=== PATIENT | male | born 1940 | race Caucasian/White ===

== ENCOUNTER 2021-01-14 10:58 | Observation (INO) ==
[2021-01-14 13:47] LABS: BUN/Creatinine Ratio 20 (6-26); Blood Urea Nitrogen 16 mg/dL (8-23); Calcium 9.6 mg/dL (8.6-10.3); Carbon Dioxide 28 mEq/L (23-29); Chloride 104 mEq/L (98-107); Glucose 172 mg/dL (70-105); Osmolality,Calculated 293 (280-300); Potassium 4.3 mEq/L (3.5-5.1); Sodium 139 mEq/L (136-145); eGFR For African Americans > 60 (> 60); eGFR For Non-African Americans > 60 (> 60)
[2021-01-14] MEDS ORDERED: Naloxone 0.4 MG/ML INJ IVP PRN (16:00)
[2021-01-14] MEDS ORDERED: Acetaminophen 325 MG TABLET PO PRN (16:13)
[2021-01-14] MEDS ORDERED: Ondansetron 4 MG/2 ML VIAL IVP PRN (16:13)
[2021-01-14] MEDS ORDERED: D5% in Water 1,000 ML IVC PRN (16:45)
[2021-01-14] MEDS ORDERED: *HR* Dextrose 50 % in Water (Vial) 50 ML VIAL IVP PRN (16:45)
[2021-01-14] MEDS ORDERED: Dextrose Gel 15 GM/37.5 ML TUBE PO PRN ×2 (16:45)
[2021-01-14] MEDS ORDERED: Isovue-370 500 ML BOTTLE IVP ONE ×2 (17:01→18:28)
[2021-01-14] MEDS: Insulin LISPRO 300 UNITS/3 ML VIAL SUBQ SCH (17:29)
[2021-01-14] MEDS: cefTRIAXone 1,000 MG in Water for inj. (sterile) 10 ML IVP SCH (17:31)
[2021-01-14 17:32] LABS: INR 1.1; Prothrombin Time 12.8 Seconds (9.4-12.1)
[2021-01-15] MEDS: Insulin LISPRO 300 UNITS/3 ML VIAL SUBQ SCH ×5 (00:45→23:56)
[2021-01-15 02:48] LABS: Basophils % 0.2 %; Eosinophils % 0.3 %; Hematocrit 34.7 % (37.5-50.1); Hemoglobin 12.1 g/dL (12.9-16.9); Immature Granulocytes % 1.4 % (0-4); Lymphocytes % 11.7 %; Mean Corpuscular HGB Conc 34.9 g/dL (31.6-35.5); Mean Corpuscular Volume 97.5 fL (83.0-100.0); Mean Platelet Volume 10.4 fL (9.4-12.4); Monocytes # 0.9 K/mcL (0.0-1.3); Neutrophils # 6.6 K/mcL (1.6-8.9); Platelet Count 150 K/mcL (140-400); Red Blood Count 3.56 M/mcL (4.19-5.50); Red Cell Distribution Width 14.9 % (11.5-14.5); Segmented Neutrophils % 76.4 %; White Blood Count 8.7 K/mcL (4.3-11.1)
[2021-01-15 03:04] LABS: BUN/Creatinine Ratio 19 (6-26); Blood Urea Nitrogen 14 mg/dL (8-23); Calcium 9.3 mg/dL (8.6-10.3); Carbon Dioxide 29 mEq/L (23-29); Chloride 104 mEq/L (98-107); Glucose 125 mg/dL (70-105); Osmolality,Calculated 292 (280-300); Potassium 3.6 mEq/L (3.5-5.1); Sodium 140 mEq/L (136-145); eGFR For African Americans > 60 (> 60); eGFR For Non-African Americans > 60 (> 60)
[2021-01-15] MEDS ORDERED: Melatonin 3 MG TABLET PO PRN (10:03)
[2021-01-15] MEDS: cefTRIAXone 1,000 MG in Water for inj. (sterile) 10 ML IVP SCH (10:09)
[2021-01-15] MEDS: rOPINIRole 0.25 MG TABLET PO SCH ×3 (10:47→22:12)
[2021-01-15] MEDS: Furosemide 40 MG TABLET PO SCH (10:47)
[2021-01-15] MEDS: Gabapentin 300 MG CAPSULE PO SCH ×3 (10:47→22:12)
[2021-01-15] MEDS: Finasteride 5 MG TABLET PO SCH (10:47)
[2021-01-15] MEDS: Carbidopa/Levodopa 25/100 TABLET PO SCH ×4 (12:56→23:58)
[2021-01-16] MEDS: Insulin LISPRO 300 UNITS/3 ML VIAL SUBQ SCH ×3 (05:52→18:03)
[2021-01-16] MEDS: Furosemide 40 MG TABLET PO SCH (08:56)
[2021-01-16] MEDS: rOPINIRole 0.25 MG TABLET PO SCH ×3 (08:57→21:13)
[2021-01-16] MEDS: Gabapentin 300 MG CAPSULE PO SCH ×3 (08:57→21:13)
[2021-01-16] MEDS: Finasteride 5 MG TABLET PO SCH (08:58)
[2021-01-16] MEDS: Carbidopa/Levodopa 25/100 TABLET PO SCH ×4 (09:00→21:40)
[2021-01-16] MEDS: cefTRIAXone 1,000 MG in Water for inj. (sterile) 10 ML IVP SCH (09:00)
[2021-01-16 09:28] LABS: Basophils % 0.4 %; Eosinophils # 0.1 K/mcL (0.0-0.6); Eosinophils % 1.2 %; Hematocrit 35.4 % (37.5-50.1); Hemoglobin 12.2 g/dL (12.9-16.9); Immature Granulocytes % 1.5 % (0-4); Lymphocytes # 0.9 K/mcL (0.6-4.6); Lymphocytes % 12.2 %; Mean Corpuscular HGB Conc 34.5 g/dL (31.6-35.5); Mean Corpuscular Volume 98.6 fL (83.0-100.0); Mean Platelet Volume 10.5 fL (9.4-12.4); Monocytes # 0.7 K/mcL (0.0-1.3); Monocytes % 9.4 %; Neutrophils # 5.5 K/mcL (1.6-8.9); Platelet Count 154 K/mcL (140-400); Red Blood Count 3.59 M/mcL (4.19-5.50); Red Cell Distribution Width 15.1 % (11.5-14.5); Segmented Neutrophils % 75.3 %; White Blood Count 7.2 K/mcL (4.3-11.1)
[2021-01-16 09:51] LABS: Alanine Aminotransferase 3 Units/L (7-52); Albumin 4.1 g/dL (3.5-5.7); Albumin/Globulin Ratio 1.6 (1.1-2.2); Alkaline Phosphatase 55 Units/L (34-104); Aspartate Amino Transferase 16 Units/L (13-39); BUN/Creatinine Ratio 22 (6-26); Bilirubin,Total 0.5 mg/dL (0.3-1.0); Blood Urea Nitrogen 19 mg/dL (8-23); Calcium 9.4 mg/dL (8.6-10.3); Carbon Dioxide 28 mEq/L (23-29); Chloride 105 mEq/L (98-107); Globulin 2.6 g/dL (2.4-3.5); Glucose 131 mg/dL (70-105); Osmolality,Calculated 298 (280-300); Potassium 3.7 mEq/L (3.5-5.1); Sodium 142 mEq/L (136-145); Total Protein 6.7 g/dL (6.4-8.9); eGFR For African Americans > 60 (> 60); eGFR For Non-African Americans > 60 (> 60)
[2021-01-16] MEDS: Levalbuterol Neb 1.25 MG/3 ML IH SCH (21:47)
[2021-01-17] MEDS: Insulin LISPRO 300 UNITS/3 ML VIAL SUBQ SCH ×4 (00:24→17:55)
[2021-01-17] MEDS: Carbidopa/Levodopa 25/100 TABLET PO SCH ×5 (00:43→20:10)
[2021-01-17] MEDS: Levalbuterol Neb 1.25 MG/3 ML IH SCH ×3 (04:31→15:52)
[2021-01-17] MEDS: rOPINIRole 0.25 MG TABLET PO SCH ×3 (08:32→20:11)
[2021-01-17] MEDS: Gabapentin 300 MG CAPSULE PO SCH ×3 (08:33→20:11)
[2021-01-17] MEDS: Finasteride 5 MG TABLET PO SCH (08:33)
[2021-01-17] MEDS: Furosemide 40 MG TABLET PO SCH (08:34)
[2021-01-17] MEDS ORDERED: Levalbuterol Neb 1.25 MG/3 ML IH PRN (19:51)
[2021-01-18] MEDS: Insulin LISPRO 300 UNITS/3 ML VIAL SUBQ SCH ×4 (00:46→16:31)
[2021-01-18] MEDS: Carbidopa/Levodopa 25/100 TABLET PO SCH ×5 (00:46→20:35)
[2021-01-18] MEDS: Finasteride 5 MG TABLET PO SCH (08:12)
[2021-01-18] MEDS: rOPINIRole 0.25 MG TABLET PO SCH ×3 (08:12→20:33)
[2021-01-18] MEDS: Furosemide 40 MG TABLET PO SCH (08:12)
[2021-01-18] MEDS: Gabapentin 300 MG CAPSULE PO SCH ×3 (08:12→20:33)
[2021-01-19] MEDS: Carbidopa/Levodopa 25/100 TABLET PO SCH ×2 (00:44→07:40)
[2021-01-19] MEDS: Insulin LISPRO 300 UNITS/3 ML VIAL SUBQ SCH ×2 (00:44→04:52)
[2021-01-19 06:33] VITALS: BP 141/87
[2021-01-19] MEDS: Finasteride 5 MG TABLET PO SCH (07:37)
[2021-01-19] MEDS: Furosemide 40 MG TABLET PO SCH (07:38)
[2021-01-19] MEDS: Gabapentin 300 MG CAPSULE PO SCH (07:38)
[2021-01-19] MEDS: rOPINIRole 0.25 MG TABLET PO SCH (07:38)
[2021-01-19 10:32] LABS: Adenovirus Not Detected (Not Detect); Bordetella Pertussis Not Detected (Not Detect); Chlamydophila pneumoniae Not Detected (Not Detect); Coronavirus 229E Not Detected (Not Detect); Coronavirus HKU1 Not Detected (Not Detect); Coronavirus NL63 Not Detected (Not Detect); Coronavirus OC43 Not Detected (Not Detect); Human Metapneumovirus Not Detected (Not Detect); Human Rhinovirus/Enterovirus Not Detected (Not Detect); Influenza A Subtype 2009 H1 Not Detected (Not Detect); Influenza B Not Detected (Not Detect); Mycoplasma pneumoniae Not Detected (Not Detect); Parainfluenza Virus 1 Not Detected (Not Detect); Parainfluenza Virus 2 Not Detected (Not Detect); Parainfluenza Virus 3 Not Detected (Not Detect); Parainfluenza Virus 4 Not Detected (Not Detect); Respiratory Syncytial Virus Not Detected (Not Detect); SARS-CoV-2 Not Detected (Not Detect)
== END 2021-01-19 10:21 ==
LOC: 3ANU 10:58 → EMEROOARM 10:58 → SUATTDRO 15:27 → 3ANU 15:28 → 3BNU 15:30
PROVIDERS: ADMIT Internal Medicine; ATTEND Internal Medicine

== ENCOUNTER 2021-03-16 13:39 | Observation (INO) ==
[2021-03-16 14:50] LABS: Basophils # 0.1 K/mcL (0.0-0.2); Basophils % 0.6 %; Eosinophils # 0.1 K/mcL (0.0-0.6); Eosinophils % 0.6 %; Hematocrit 38.3 % (37.5-50.1); Hemoglobin 13.4 g/dL (12.9-16.9); Immature Granulocytes % 2.1 % (0-4); Lymphocytes # 1.1 K/mcL (0.6-4.6); Lymphocytes % 13.7 %; Mean Corpuscular Hemoglobin 34.2 pg (28.0-33.3); Mean Corpuscular Volume 97.7 fL (83.0-100.0); Mean Platelet Volume 10.9 fL (9.4-12.4); Monocytes # 0.7 K/mcL (0.0-1.3); Monocytes % 8.6 %; Platelet Count 158 K/mcL (140-400); Red Blood Count 3.92 M/mcL (4.19-5.50); Red Cell Distribution Width 15.3 % (11.5-14.5); Segmented Neutrophils % 74.4 %; White Blood Count 8.1 K/mcL (4.3-11.1)
[2021-03-16 15:19] LABS: INR 1.3; Prothrombin Time 15.3 Seconds (9.4-12.1)
[2021-03-16 15:22] LABS: Activated Partial Thrombo Time 31.6 Seconds (26.0-36.0)
[2021-03-16 15:29] LABS: Alanine Aminotransferase < 3 Units/L (7-52); Albumin 4.1 g/dL (3.5-5.7); Albumin/Globulin Ratio 1.4 (1.1-2.2); Alkaline Phosphatase 70 Units/L (34-104); Aspartate Amino Transferase 21 Units/L (13-39); BUN/Creatinine Ratio 16 (6-26); Bilirubin,Indirect 0.3 mg/dL (0.0-1.0); Bilirubin,Total 0.3 mg/dL (0.3-1.0); Blood Urea Nitrogen 14 mg/dL (8-23); Calcium 9.3 mg/dL (8.6-10.3); Carbon Dioxide 28 mEq/L (23-29); Chloride 99 mEq/L (98-107); Globulin 2.9 g/dL (2.4-3.5); Glucose 179 mg/dL (70-105); Osmolality,Calculated 289 (280-300); Potassium 4.4 mEq/L (3.5-5.1); Sodium 137 mEq/L (136-145); Troponin I < 0.03 ng/mL (< 0.04); eGFR For African Americans > 60 (> 60); eGFR For Non-African Americans > 60 (> 60)
[2021-03-16 15:45] LABS: Ethanol < 10 mg/dL (Less than 10)
[2021-03-16 15:46] LABS: Amphetamine Screen,Urine Negative ng/mL (Cutoff=1000); Bacteria,Urine Few per hpf (None-Few); Barbiturate Screen,Urine Negative ng/mL (Cutoff=200); Benzodiazepines Screen,Urine Negative ng/mL (Cutoff=200); Bilirubin,Urine Negative (Negative); Blood,Urine Negative (Negative); Cannabinoid Screen,Urine Negative ng/mL (Cutoff = 50); Clarity,Urine Clear (Clear); Cocaine Screen,Urine Negative ng/mL (Cutoff= 300); Color,Urine Light-Yellow (Yellow); Glucose,Urine (UA) Normal (Normal); Hyaline Casts,Urine Moderate per lpf (None Seen); Ketones,Urine Negative (Negative); Leukocyte Esterase,Urine Moderate (Negative); Mucus,Urine Few per lpf (None-Few); Nitrite,Urine Negative (Negative); Opiate Screen,Urine Negative ng/mL (Cutoff=300); Phencyclidine Screen,Urine Negative ng/mL (Cutoff=25); Protein,Urine Negative (Neg-Trace); Renal Epithelial Cells,Urine Few per hpf (None-Few); Specific Gravity,Urine 1.016 (1.010-1.025); Transitional Epi Cells,Urine Few per hpf (None-Few); Urobilinogen,Urine Normal (Normal); WBC,Urine 30-50 per hpf (0-3)
[2021-03-16] MEDS ORDERED: cefTRIAXone 1,000 MG in Water for inj. (sterile) 10 ML IVP ONE (16:27)
[2021-03-16] MEDS ORDERED: Ondansetron ODT 4 MG TAB.RAPDIS SL PRN (16:49)
[2021-03-16] MEDS ORDERED: Naloxone 0.4 MG/ML INJ IVP PRN (16:49)
[2021-03-16] MEDS ORDERED: Mag Hydrox/Al Hydrox/Simeth 30 ML UDC PO PRN (16:49)
[2021-03-16 17:42] LABS: Triiodothyronine (T3) Free 3.75 pg/mL (2.50-3.90)
[2021-03-16 17:48] LABS: Folate 19.4 ng/mL (3.0-16.0)
[2021-03-16] MEDS ORDERED: *HR* LORazepam 2 MG/ML VIAL IVP PRN (17:50)
[2021-03-16] MEDS ORDERED: *HR* HYDROcodone/Acet 5/325 mg TABLET PO PRN (17:54)
[2021-03-16] MEDS: Haloperidol Lactate 5 MG/ML VIAL IVP PRN (18:11)
[2021-03-16] MEDS: rOPINIRole 0.25 MG TABLET PO SCH (19:49)
[2021-03-16] MEDS: Carbidopa/Levodopa 25/100 TABLET PO SCH (19:49)
[2021-03-16] MEDS: Sennosides/Docusate Sodium TABLET PO SCH (19:51)
[2021-03-16] MEDS: Melatonin 3 MG TABLET PO PRN (19:52)
[2021-03-17] MEDS: (Miconazole Nitrate [Desenex] 43 GM Powder) TP SCH ×2 (00:11→09:31)
[2021-03-17] MEDS: Carbidopa/Levodopa 25/100 TABLET PO SCH ×5 (00:20→20:33)
[2021-03-17 06:54] LABS: Hematocrit 34.6 % (37.5-50.1); Hemoglobin 11.6 g/dL (12.9-16.9); Mean Corpuscular HGB Conc 33.5 g/dL (31.6-35.5); Mean Corpuscular Hemoglobin 33.3 pg (28.0-33.3); Mean Corpuscular Volume 99.4 fL (83.0-100.0); Mean Platelet Volume 10.7 fL (9.4-12.4); Platelet Count 143 K/mcL (140-400); Red Blood Count 3.48 M/mcL (4.19-5.50); Red Cell Distribution Width 14.7 % (11.5-14.5); White Blood Count 5.5 K/mcL (4.3-11.1)
[2021-03-17 07:10] LABS: BUN/Creatinine Ratio 14 (6-26); Blood Urea Nitrogen 11 mg/dL (8-23); Calcium 8.9 mg/dL (8.6-10.3); Carbon Dioxide 31 mEq/L (23-29); Chloride 104 mEq/L (98-107); Glucose 140 mg/dL (70-105); Osmolality,Calculated 292 (280-300); Sodium 140 mEq/L (136-145); eGFR For African Americans > 60 (> 60); eGFR For Non-African Americans > 60 (> 60)
[2021-03-17] MEDS: Cholecalciferol (D-3) 1,000 UNIT (25MCG) TABLET PO SCH (09:29)
[2021-03-17] MEDS: cefTRIAXone 1,000 MG in Water for inj. (sterile) 10 ML IVP SCH (09:30)
[2021-03-17] MEDS: Sennosides/Docusate Sodium TABLET PO SCH ×2 (09:30→20:36)
[2021-03-17] MEDS: Finasteride 5 MG TABLET PO SCH (09:30)
[2021-03-17] MEDS: Furosemide 20 MG TABLET PO SCH (09:30)
[2021-03-17] MEDS: rOPINIRole 0.25 MG TABLET PO SCH ×3 (09:31→20:35)
[2021-03-17] MEDS: polyethylene glycoL 3350 17 GM POWD.PACK PO SCH (09:31)
[2021-03-17] MEDS ORDERED: Albuterol 2.5 MG/3 ML NEBULIZER IH PRN (14:15)
[2021-03-17] MEDS: Acetaminophen 325 MG TABLET PO SCH ×2 (16:10→20:36)
[2021-03-17] MEDS ORDERED: *HR* Heparin 5,000 UNIT/ML VIAL SQ SCH (18:00)
[2021-03-17] MEDS: Apixaban 5 MG TABLET PO SCH (20:35)
[2021-03-17] MEDS: Melatonin 3 MG TABLET PO PRN (20:36)
[2021-03-17] MEDS: Nystatin POWDER 30 GM BOTTLE TP SCH (20:42)
[2021-03-18] MEDS: Carbidopa/Levodopa 25/100 TABLET PO SCH ×6 (00:46→22:50)
[2021-03-18 02:11] LABS: Basophils % 0.3 %; Eosinophils # 0.1 K/mcL (0.0-0.6); Eosinophils % 1.3 %; Hematocrit 36.3 % (37.5-50.1); Hemoglobin 12.3 g/dL (12.9-16.9); Immature Granulocytes % 1.9 % (0-4); Lymphocytes % 15.5 %; Mean Corpuscular HGB Conc 33.9 g/dL (31.6-35.5); Mean Corpuscular Hemoglobin 32.9 pg (28.0-33.3); Mean Corpuscular Volume 97.1 fL (83.0-100.0); Mean Platelet Volume 10.3 fL (9.4-12.4); Monocytes # 0.5 K/mcL (0.0-1.3); Monocytes % 8.5 %; Neutrophils # 4.6 K/mcL (1.6-8.9); Platelet Count 153 K/mcL (140-400); Red Blood Count 3.74 M/mcL (4.19-5.50); Segmented Neutrophils % 72.5 %; White Blood Count 6.3 K/mcL (4.3-11.1)
[2021-03-18] MEDS: Finasteride 5 MG TABLET PO SCH (08:30)
[2021-03-18] MEDS: Furosemide 20 MG TABLET PO SCH (08:30)
[2021-03-18] MEDS: Sennosides/Docusate Sodium TABLET PO SCH ×2 (08:30→19:31)
[2021-03-18] MEDS: Cholecalciferol (D-3) 1,000 UNIT (25MCG) TABLET PO SCH (08:30)
[2021-03-18] MEDS: Apixaban 5 MG TABLET PO SCH ×2 (08:30→19:30)
[2021-03-18] MEDS: Acetaminophen 325 MG TABLET PO SCH ×3 (08:30→19:31)
[2021-03-18] MEDS: polyethylene glycoL 3350 17 GM POWD.PACK PO SCH (08:31)
[2021-03-18] MEDS: rOPINIRole 0.25 MG TABLET PO SCH ×3 (08:31→19:30)
[2021-03-18] MEDS: Nystatin POWDER 30 GM BOTTLE TP SCH ×2 (08:40→19:39)
[2021-03-18] MEDS: cefTRIAXone 1,000 MG in Water for inj. (sterile) 10 ML IVP SCH (09:34)
[2021-03-18 20:24] LABS: Adenovirus Not Detected (Not Detect); Bordetella Pertussis Not Detected (Not Detect); Chlamydophila pneumoniae Not Detected (Not Detect); Coronavirus 229E Not Detected (Not Detect); Coronavirus HKU1 Not Detected (Not Detect); Coronavirus NL63 Not Detected (Not Detect); Coronavirus OC43 Not Detected (Not Detect); Human Metapneumovirus Not Detected (Not Detect); Human Rhinovirus/Enterovirus Not Detected (Not Detect); Influenza A Subtype 2009 H1 Not Detected (Not Detect); Influenza B Not Detected (Not Detect); Mycoplasma pneumoniae Not Detected (Not Detect); Parainfluenza Virus 1 Not Detected (Not Detect); Parainfluenza Virus 2 Not Detected (Not Detect); Parainfluenza Virus 3 Not Detected (Not Detect); Parainfluenza Virus 4 Not Detected (Not Detect); Respiratory Syncytial Virus Not Detected (Not Detect); SARS-CoV-2 Not Detected (Not Detect)
[2021-03-19] MEDS ORDERED: *HR* Metoprolol 5 MG/5 ML VIAL IVP ONE (01:29)
[2021-03-19 03:02] VITALS: BP 113/78; TEMP 97.6; O2SAT 99
[2021-03-19] MEDS: Haloperidol Lactate 5 MG/ML VIAL IVP PRN (05:00)
[2021-03-19 07:44] VITALS: PULSE 78
[2021-03-19] MEDS: Carbidopa/Levodopa 25/100 TABLET PO SCH (08:27)
[2021-03-19] MEDS: Cholecalciferol (D-3) 1,000 UNIT (25MCG) TABLET PO SCH (08:27)
[2021-03-19] MEDS: Finasteride 5 MG TABLET PO SCH (08:27)
[2021-03-19] MEDS: Acetaminophen 325 MG TABLET PO SCH (08:28)
[2021-03-19] MEDS: Furosemide 20 MG TABLET PO SCH (08:28)
[2021-03-19] MEDS: Apixaban 5 MG TABLET PO SCH (08:28)
[2021-03-19] MEDS: Sennosides/Docusate Sodium TABLET PO SCH (08:29)
[2021-03-19] MEDS: rOPINIRole 0.25 MG TABLET PO SCH (08:29)
[2021-03-19] MEDS: polyethylene glycoL 3350 17 GM POWD.PACK PO SCH (08:29)
[2021-03-19] MEDS: Nystatin POWDER 30 GM BOTTLE TP SCH (08:29)
[2021-03-19] MEDS: cefTRIAXone 1,000 MG in Water for inj. (sterile) 10 ML IVP SCH (09:49)
== END 2021-03-19 10:43 ==
LOC: EMEROOARM 13:39 → 3BNU 13:39 → SUATTDRO 16:53 → 3BNU 17:44
PROVIDERS: ADMIT Internal Medicine; ATTEND Internal Medicine

== ENCOUNTER 2021-05-06 23:47 | Observation (INO) ==
[2021-05-07] MEDS ORDERED: Isovue-370 500 ML BOTTLE IVP ONE (00:35)
[2021-05-07 01:42] LABS: Basophils % 0.2 %; Hematocrit 38.7 % (37.5-50.1); Hemoglobin 12.8 g/dL (12.9-16.9); Immature Granulocytes % 1.2 % (0-4); Lymphocytes # 0.3 K/mcL (0.6-4.6); Lymphocytes % 2.9 %; Mean Corpuscular HGB Conc 33.1 g/dL (31.6-35.5); Mean Corpuscular Hemoglobin 32.2 pg (28.0-33.3); Mean Corpuscular Volume 97.5 fL (83.0-100.0); Mean Platelet Volume 10.3 fL (9.4-12.4); Monocytes # 0.5 K/mcL (0.0-1.3); Monocytes % 4.6 %; Neutrophils # 9.5 K/mcL (1.6-8.9); Platelet Count 162 K/mcL (140-400); Red Blood Count 3.97 M/mcL (4.19-5.50); Red Cell Distribution Width 14.6 % (11.5-14.5); Segmented Neutrophils % 91.1 %; White Blood Count 10.4 K/mcL (4.3-11.1)
[2021-05-07 02:09] LABS: BUN/Creatinine Ratio 20 (6-26); Blood Urea Nitrogen 15 mg/dL (8-23); Calcium 9.5 mg/dL (8.6-10.3); Carbon Dioxide 32 mEq/L (23-29); Chloride 100 mEq/L (98-107); Glucose 266 mg/dL (70-105); Lipase 15 Units/L (11-82); Osmolality,Calculated 296 (280-300); Potassium 4.2 mEq/L (3.5-5.1); Sodium 138 mEq/L (136-145); eGFR For African Americans > 60 (> 60); eGFR For Non-African Americans > 60 (> 60)
[2021-05-07 03:52] LABS: Bilirubin,Urine Negative (Negative); Blood,Urine Large (Negative); Clarity,Urine Clear (Clear); Color,Urine Light-Yellow (Yellow); Glucose,Urine (UA) >=1000 mg/dL (Normal); Ketones,Urine Negative (Negative); Leukocyte Esterase,Urine Negative (Negative); Mucus,Urine Few per lpf (None-Few); Nitrite,Urine Negative (Negative); PH,Urine 7.5 pH Units (5.0-8.0); Protein,Urine 30 mg/dL (Neg-Trace); RBC,Urine TNTC per hpf (0-3); Specific Gravity,Urine > 1.030 (1.010-1.025); Squamous Epithelial Cell,Urine Few per hpf (None-Few); Urobilinogen,Urine Normal (Normal); WBC,Urine 30-50 per hpf (0-3)
[2021-05-07] MEDS ORDERED: cefTRIAXone 1,000 MG in Water for inj. (sterile) 10 ML IVP ONE (04:29)
[2021-05-07] MEDS ORDERED: Acetaminophen 325 MG TABLET PO PRN (04:57)
[2021-05-07] MEDS ORDERED: Naloxone 0.4 MG/ML INJ IVP PRN (04:57)
[2021-05-07] MEDS ORDERED: Ondansetron 4 MG/2 ML VIAL IVP PRN (04:57)
[2021-05-07] MEDS ORDERED: 0.9 % Sodium Chloride 1,000 ML IVC SCH (05:30)
[2021-05-07] MEDS ORDERED: Dextrose Gel 15 GM/37.5 ML TUBE PO PRN ×2 (05:32)
[2021-05-07] MEDS ORDERED: D5% in Water 1,000 ML IVC PRN (05:32)
[2021-05-07] MEDS ORDERED: *HR* Dextrose 50 % in Water (Syg) 50 ML SYRINGE IVP PRN (05:32)
[2021-05-07] MEDS ORDERED: Melatonin 3 MG TABLET PO PRN (05:36)
[2021-05-07] MEDS ORDERED: Ipratropium/Albuterol Neb 3 ML IH PRN (05:36)
[2021-05-07 07:12] LABS: INR 1.4; Prothrombin Time 15.3 Seconds (9.4-12.1)
[2021-05-07 07:20] LABS: Albumin 3.8 g/dL (3.5-5.7); Albumin/Globulin Ratio 1.5 (1.1-2.2); Bilirubin,Direct 0.1 mg/dL (0.0-0.2); Bilirubin,Indirect 0.2 mg/dL (0.0-1.0); Bilirubin,Total 0.3 mg/dL (0.3-1.0); Globulin 2.5 g/dL (2.4-3.5); Total Protein 6.3 g/dL (6.4-8.9)
[2021-05-07] MEDS: Insulin LISPRO 300 UNITS/3 ML VIAL SUBQ SCH ×3 (09:39→16:19)
[2021-05-07] MEDS: cefTRIAXone 1,000 MG in Water for inj. (sterile) 10 ML IVP SCH (15:19)
[2021-05-07] MEDS ORDERED: rOPINIRole 0.25 MG TABLET PO PRN (15:30)
[2021-05-07] MEDS: Carbidopa/Levodopa 25/100 TABLET PO SCH ×2 (16:22→20:01)
[2021-05-07] MEDS: Apixaban 5 MG TABLET PO SCH (20:01)
[2021-05-07] MEDS: Sennosides/Docusate Sodium TABLET PO SCH (20:02)
[2021-05-08] MEDS: Carbidopa/Levodopa 25/100 TABLET PO SCH ×5 (01:12→22:30)
[2021-05-08] MEDS: Clotrimazole 1% CRM 15 GM TUBE TP SCH ×3 (01:13→22:31)
[2021-05-08 02:40] LABS: Basophils % 0.4 %; Eosinophils # 0.1 K/mcL (0.0-0.6); Eosinophils % 0.7 %; Hematocrit 33.9 % (37.5-50.1); Hemoglobin 11.7 g/dL (12.9-16.9); Immature Granulocytes % 1.3 % (0-4); Lymphocytes # 0.9 K/mcL (0.6-4.6); Lymphocytes % 13.5 %; Mean Corpuscular HGB Conc 34.5 g/dL (31.6-35.5); Mean Corpuscular Hemoglobin 34.5 pg (28.0-33.3); Mean Platelet Volume 10.6 fL (9.4-12.4); Monocytes # 0.6 K/mcL (0.0-1.3); Monocytes % 8.8 %; Neutrophils # 5.1 K/mcL (1.6-8.9); Platelet Count 147 K/mcL (140-400); Red Blood Count 3.39 M/mcL (4.19-5.50); Red Cell Distribution Width 15.9 % (11.5-14.5); Segmented Neutrophils % 75.3 %; White Blood Count 6.8 K/mcL (4.3-11.1)
[2021-05-08 02:54] LABS: BUN/Creatinine Ratio 16 (6-26); Blood Urea Nitrogen 12 mg/dL (8-23); Calcium 9.2 mg/dL (8.6-10.3); Carbon Dioxide 30 mEq/L (23-29); Chloride 105 mEq/L (98-107); Glucose 154 mg/dL (70-105); Magnesium 2.3 mg/dL (1.6-2.6); Osmolality,Calculated 295 (280-300); Sodium 141 mEq/L (136-145); eGFR For African Americans > 60 (> 60); eGFR For Non-African Americans > 60 (> 60)
[2021-05-08] MEDS: polyethylene glycoL 3350 17 GM POWD.PACK PO SCH (08:00)
[2021-05-08] MEDS: cefTRIAXone 1,000 MG in Water for inj. (sterile) 10 ML IVP SCH (08:00)
[2021-05-08] MEDS: Furosemide 40 MG TABLET PO SCH (08:01)
[2021-05-08] MEDS: Sennosides/Docusate Sodium TABLET PO SCH ×2 (08:01→22:27)
[2021-05-08] MEDS: Finasteride 5 MG TABLET PO SCH (08:01)
[2021-05-08] MEDS: Apixaban 5 MG TABLET PO SCH ×2 (08:01→22:27)
[2021-05-08] MEDS: Insulin LISPRO 300 UNITS/3 ML VIAL SUBQ SCH ×3 (08:09→17:40)
[2021-05-09] MEDS: Carbidopa/Levodopa 25/100 TABLET PO SCH ×5 (04:23→21:51)
[2021-05-09 06:11] LABS: Basophils % 0.3 %; Eosinophils # 0.1 K/mcL (0.0-0.6); Eosinophils % 0.9 %; Hematocrit 34.7 % (37.5-50.1); Hemoglobin 12.4 g/dL (12.9-16.9); Immature Granulocytes % 1.1 % (0-4); Lymphocytes # 0.7 K/mcL (0.6-4.6); Lymphocytes % 11.4 %; Mean Corpuscular HGB Conc 35.7 g/dL (31.6-35.5); Mean Corpuscular Hemoglobin 35.2 pg (28.0-33.3); Mean Corpuscular Volume 98.6 fL (83.0-100.0); Mean Platelet Volume 10.3 fL (9.4-12.4); Monocytes # 0.6 K/mcL (0.0-1.3); Monocytes % 9.2 %; Platelet Count 154 K/mcL (140-400); Red Blood Count 3.52 M/mcL (4.19-5.50); Red Cell Distribution Width 15.6 % (11.5-14.5); Segmented Neutrophils % 77.1 %; White Blood Count 6.5 K/mcL (4.3-11.1)
[2021-05-09 06:23] LABS: BUN/Creatinine Ratio 15 (6-26); Blood Urea Nitrogen 11 mg/dL (8-23); Calcium 9.5 mg/dL (8.6-10.3); Carbon Dioxide 28 mEq/L (23-29); Chloride 103 mEq/L (98-107); Glucose 130 mg/dL (70-105); Osmolality,Calculated 289 (280-300); Sodium 139 mEq/L (136-145); eGFR For African Americans > 60 (> 60); eGFR For Non-African Americans > 60 (> 60)
[2021-05-09] MEDS: Furosemide 40 MG TABLET PO SCH (09:16)
[2021-05-09] MEDS: Apixaban 5 MG TABLET PO SCH ×2 (09:16→21:51)
[2021-05-09] MEDS: polyethylene glycoL 3350 17 GM POWD.PACK PO SCH (09:17)
[2021-05-09] MEDS: cefTRIAXone 1,000 MG in Water for inj. (sterile) 10 ML IVP SCH (09:17)
[2021-05-09] MEDS: Finasteride 5 MG TABLET PO SCH (09:17)
[2021-05-09] MEDS: Sennosides/Docusate Sodium TABLET PO SCH ×2 (09:18→21:51)
[2021-05-09] MEDS: Insulin LISPRO 300 UNITS/3 ML VIAL SUBQ SCH ×3 (16:32→21:53)
[2021-05-09] MEDS: Clotrimazole 1% CRM 15 GM TUBE TP SCH ×2 (16:33→21:58)
[2021-05-09] MEDS: Amoxicillin 500 MG CAPSULE PO SCH (16:51)
[2021-05-10] MEDS: Amoxicillin 500 MG CAPSULE PO SCH ×3 (00:36→15:56)
[2021-05-10] MEDS: Carbidopa/Levodopa 25/100 TABLET PO SCH ×5 (00:36→20:22)
[2021-05-10 01:39] LABS: Hematocrit 36.4 % (37.5-50.1); Hemoglobin 12.8 g/dL (12.9-16.9); Mean Corpuscular HGB Conc 35.2 g/dL (31.6-35.5); Mean Corpuscular Hemoglobin 34.1 pg (28.0-33.3); Mean Corpuscular Volume 97.1 fL (83.0-100.0); Mean Platelet Volume 10.3 fL (9.4-12.4); Platelet Count 155 K/mcL (140-400); Red Blood Count 3.75 M/mcL (4.19-5.50); Red Cell Distribution Width 15.3 % (11.5-14.5); White Blood Count 6.7 K/mcL (4.3-11.1)
[2021-05-10] MEDS: Apixaban 5 MG TABLET PO SCH ×2 (09:29→20:22)
[2021-05-10] MEDS: Furosemide 40 MG TABLET PO SCH (09:30)
[2021-05-10] MEDS: Finasteride 5 MG TABLET PO SCH (09:30)
[2021-05-10] MEDS: Sennosides/Docusate Sodium TABLET PO SCH ×2 (09:30→20:22)
[2021-05-10] MEDS: Insulin LISPRO 300 UNITS/3 ML VIAL SUBQ SCH ×3 (09:31→17:09)
[2021-05-10] MEDS: polyethylene glycoL 3350 17 GM POWD.PACK PO SCH (09:31)
[2021-05-10] MEDS: Clotrimazole 1% CRM 15 GM TUBE TP SCH ×2 (09:45→20:21)
[2021-05-10 17:33] LABS: Adenovirus Not Detected (Not Detect); Bordetella Pertussis Not Detected (Not Detect); Chlamydophila pneumoniae Not Detected (Not Detect); Coronavirus 229E Not Detected (Not Detect); Coronavirus HKU1 Not Detected (Not Detect); Coronavirus NL63 Not Detected (Not Detect); Coronavirus OC43 Not Detected (Not Detect); Human Metapneumovirus Not Detected (Not Detect); Human Rhinovirus/Enterovirus Not Detected (Not Detect); Influenza A Subtype 2009 H1 Not Detected (Not Detect); Influenza B Not Detected (Not Detect); Mycoplasma pneumoniae Not Detected (Not Detect); Parainfluenza Virus 1 Not Detected (Not Detect); Parainfluenza Virus 2 Not Detected (Not Detect); Parainfluenza Virus 3 Not Detected (Not Detect); Parainfluenza Virus 4 Not Detected (Not Detect); Respiratory Syncytial Virus Not Detected (Not Detect); SARS-CoV-2 Not Detected (Not Detect)
[2021-05-11] MEDS: Amoxicillin 500 MG CAPSULE PO SCH ×2 (00:16→08:35)
[2021-05-11] MEDS: Carbidopa/Levodopa 25/100 TABLET PO SCH ×2 (00:16→08:35)
[2021-05-11 07:57] VITALS: BP 114/77; PULSE 75; TEMP 98.4; O2SAT 94
[2021-05-11] MEDS: Apixaban 5 MG TABLET PO SCH (08:34)
[2021-05-11] MEDS: Insulin LISPRO 300 UNITS/3 ML VIAL SUBQ SCH (08:34)
[2021-05-11] MEDS: Sennosides/Docusate Sodium TABLET PO SCH (08:35)
[2021-05-11] MEDS: Finasteride 5 MG TABLET PO SCH (08:35)
[2021-05-11] MEDS: polyethylene glycoL 3350 17 GM POWD.PACK PO SCH (08:35)
[2021-05-11] MEDS: Furosemide 40 MG TABLET PO SCH (08:35)
== END 2021-05-11 10:45 ==
LOC: EMEROOARM 23:47 → 3ANU 23:47 → SUATTDRO 05-07 04:34 → 3ANU 05-07 05:16
PROVIDERS: ADMIT Student in an Organized Health Care Education/Training Program; ATTEND Nurse Practitioner